=== PATIENT | female | born 1965 | race Caucasian/White ===

== ENCOUNTER 2017-05-11 05:12 | Day surgery (SDC) | payer MEDICARE, BC ==
[~2017-05-11] VITALS: Ht 167.6 cm; Wt 97.1 kg
[2017-05-11 06:08] LABS: BASOPHILS 0.3 % (0-2); EOSINOPHILS 1.8 % (0-7); HEMATOCRIT 37.5 % (36.0-48.0); HEMOGLOBIN 12.4 g/dL (12-16); IMMATURE GRANULOCYTES 1.1 % (0-5); LYMPHOCYTES 14.8 % (15-50); MCH 30.8 pg (26.0-34.0); MCHC 33.1 g/dL (31.0-37.0); MCV 93.3 fL (80.0-100.0); MEAN PLATELET VOLUME 9.3 fL (7.4-10.4); MONOCYTES 8.6 % (2-11); NEUTROPHILS 73.4 % (40-80); PLATELET COUNT 225 10x3/uL (130-400); RBC 4.02 10x6/uL (4.00-5.40); RDW 12.5 % (11.5-14.5); WBC 6.5 10x3/uL (4.8-10.8)
[2017-05-11] MEDS ORDERED: ULTRAM50 MG PO (06:24)
[2017-05-11] MEDS ORDERED: MOBIC7.5 MG PO (06:24)
[2017-05-11] MEDS ORDERED: NORVASC5 MG PO (06:25)
[2017-05-11] MEDS ORDERED: HCTZ25 MG PO (06:25)
[2017-05-11] MEDS ORDERED: MULTIPLE VITAMI1 TA1 PO (06:26)
[2017-05-11 06:34] VITALS: BP 136/94; Ht 167.6 cm; Wt 97.1 kg
--- NOTE | 2017-05-11 10:39 | NUR ---
1025- PT TO ROOM WITH HOB SLIGHTLY ELEVATED. VSS. NC REMOVED. IV TO RIGHT ARM INFUSING. PT RESPONSIVE TO VERBAL STIMULI AND ANSWERING APPROPRIATELY. FAMILY AT BEDSIDE. WILL MONITOR.
--- NOTE | 2017-05-11 10:59 | NUR ---
1055- PT TOLERATING LIQUIDS. CONTINUES WITH PAIN OF 5/10 TO BACK AND RIGHT LEG. C/O ITCHY AND DRY EYES, WET CLOTH PROVIDED, WILL NOTIFY ANESTHESIA. VSS. WILL CONTINUE TO MONITOR.
--- NOTE | 2017-05-11 13:17 | NUR ---
1210- IV D/C'D, PT TOLERATED. CATHETER INTACT. 1230- DISCHARGE INSTRUCTIONS COMPLETED, VERBALIZED UNDERSTANDING. PAPERWORK SIGNED. 1235- PT DISCHARGED VIA WHEELCHAIR WITH FAMILY.
--- NOTE | 2017-05-15 16:01 | OP ---
PATIENT NAME: RADAMES CHAPMAN MEDICAL RECORD: [id number] :63 LOCATION:D.OPS ADMISSION DATE: SURGEON: JIMMY JOE MD DATE OF OPERATION: 05/11/2017 PREOPERATIVE DIAGNOSES: Synovial cyst, epidural mass at L4-L5 bilaterally. POSTOPERATIVE DIAGNOSES: Synovial cyst, epidural mass at L4-L5 bilaterally. PROCEDURES: 1. Lumbar laminectomy at L4 and L5 with microscopic dissection of the synovial cyst and epidural mass. 2. Foraminotomies at L4-L5 bilaterally. DESCRIPTION OF TECHNIQUE: After induction of general endotracheal anesthesia, the patient was rolled prone on a Segundo frame. Lumbar spine was prepped and draped in usual sterile fashion. Fluoroscopic x-ray and spinal needle localized the L4-L5 interspace on the left side. A stab incision was created with a #11 blade. A series of dilators were used to advance a [employer] retractor at the L4-L5 interspace on the left side. The level was confirmed with fluoroscopic x-ray. A microscope and Midas Vladimir drill were used to perform a laminotomy, medial facetectomy and foraminotomy as well as laminectomy at L4-L5 on the left. Hypertrophied ligamentum flavum was removed with Cloward rongeurs. This ligamentum flavum was adherent to a large synovial cyst. This was also resected from the dura with microscissors and microscope as well as microdissectors. After the central dura was cleared of the synovial cyst, this was sent to pathology for diagnosis. The ligamentum flavum was removed on the opposite side within the canal and the foramen. Following this, both the L4 and L5 nerve roots on both sides were decompressed well. Meticulous hemostasis was maintained throughout the wound. The wound was irrigated with copious amounts of Ancef irrigant solution. The fascia was closed with 2-0 Vicryl suture, the subdermal layer was closed with 3-0 Vicryl suture. The skin was closed with ana lilia. A sterile dressing was applied to the wound. The patient was awakened in good condition and taken to recovery. All counts were reported as correct. Estimated blood loss was minimal. TRANSINT:[id number] Voice Confirmation ID: [id number] DOCUMENT ID: [id number] JIMMY JOE MD at 1602 CC: [id number] DICTATION DATE: 05/13/17 1524 NETWORK OPERATIONS MANAGER: 05/14/17 0006 [facility] 05/11/17 [place] [id number] [place] [id number]
== END 2017-05-11 12:35 | disposition home or self-care (01) ==
LOC: D.OPS 05:12
PROVIDERS: Neurological Surgery
DX: M71.38 Other bursal cyst, other site (principal); M54.16 Radiculopathy, lumbar region; Z01.812 Encounter for preprocedural laboratory examination